=== PATIENT | male | born 1975 | race Asian ===

== ENCOUNTER → 2022-03-01 10:58 | Outpatient (REF) | payer OTHER, SELFPAY | LOC: HO.SL 10:58 | PROVIDERS: PCP Internal Medicine; Visit Provider Nurse Practitioner Family | DX: G47.33 Obstructive sleep apnea (adult) (pediatric) (principal); R06.83 Snoring; R40.0 Somnolence | CPT/HCPCS: 95806 ==

== ENCOUNTER 2023-03-14 11:48 | Outpatient (REF) | payer OTHER, SELFPAY ==
[2023-03-14 16:15] LABS: Alanine Aminotransferase 43 U/L (0-40); Albumin Level 4.5 g/dL (3.5-5.0); Alkaline Phosphatase 52 U/L (39-117); Anion Gap 15 (12-20); Aspartate Amino Transferase 28 U/L (5-37); Bilirubin Direct 0.1 mg/dL (0.0-0.5); Bilirubin Total 0.5 mg/dL (0.0-1.0); Blood Urea Nitrogen 9 mg/dL (9-16); Calcium 9.8 mg/dL (8.4-10.2); Carbon Dioxide 21 mmol/L (22-29); Chloride 106 mmol/L (96-108); Cholesterol 260 mg/dL; Estimated Glomerular Filt Rate > 60; Glucose Random 66 mg/dL (60-115); HDL Cholesterol 53 mg/dL; LDL Cholesterol Calculated 174 mg/dl; Magnesium 2.1 mg/dL (1.6-2.6); Potassium 3.4 mmol/L (3.3-5.1); Sodium 139 mmol/L (135-145); Total Protein 7.4 g/dL (6.5-8.0); Triglycerides 168 mg/dL
[2023-03-14 16:30] LABS: Thyroid Stimulating Hormone 10.44 uIU/mL (0.32-4.0)
[2023-03-14 16:35] LABS: Vitamin B12 202 pg/mL (200-900)
== END 2023-03-14 11:49 | disposition home or self-care (01) ==
LOC: HO.CHCLDS 11:48
PROVIDERS: Visit Provider Student in an Organized Health Care Education/Training Program
DX: E03.9 Hypothyroidism, unspecified (principal); E55.9 Vitamin D deficiency, unspecified
CPT/HCPCS: 80048; 80061; 80076; 82306; 82607; 83735; 84255; 84443

== ENCOUNTER 2023-03-23 11:26 | Outpatient (REF) | payer OTHER, SELFPAY ==
--- NOTE | ~2023-03-23 | US_ITS ---
EXAMINATION: US ABDOMEN COMPLETE CLINICAL INFORMATION: Abnormal liver function tests. COMPARISON: None available. TECHNIQUE: Real-time imaging of the abdominal viscera. Limited visualization due to bowel gas and body habitus. FINDINGS: PANCREAS: Poorly visualized. ABDOMINAL AORTA: Atherosclerosis. Limited visualization. Imaged portion of olc-ie-ebujir abdominal aorta is nonaneurysmal. Poor visualization of pvvoqgik-mr-xwn abdominal aorta. INFERIOR VENA CAVA: Visualized portions are normal. LIVER: Diffuse increase in echogenicity of the liver is characteristic of primary hepatocellular disease, possibly due to hepatic steatosis and further limits visualization. GALLBLADDER: Gallbladder surgically absent. COMMON BILE DUCT: Normal in caliber measuring 0.8 cm in diameter. RIGHT KIDNEY: No hydronephrosis. No renal calculi. Limited visualization. The kidney measures 11.4 cm in maximum dimension. LEFT KIDNEY: No hydronephrosis. No renal calculi. Limited visualization. The kidney measures 10.7 cm in maximum dimension. SPLEEN: Unremarkable. The spleen measures 9.1 cm in maximum dimension. FREE FLUID: None. US/US abdomen complete IMPRESSION: 1. Atherosclerosis. Limited visualization. Imaged portion of gvm-rr-vkxlne abdominal aorta is nonaneurysmal. Poor visualization of yuocooaf-id-sqw abdominal aorta. 2. Diffuse increase in echogenicity of the liver is characteristic of primary hepatocellular disease, possibly due to hepatic steatosis and further limits visualization. 3. Gallbladder surgically absent. 4. Limited visualization due to bowel gas and body habitus. CT scan should be considered for further evaluation.
== END 2023-03-23 11:27 | disposition home or self-care (01) ==
LOC: HO.HMGCX 11:26
PROVIDERS: PCP Internal Medicine; Visit Provider Internal Medicine
DX: R79.89 Other specified abnormal findings of blood chemistry (principal)
CPT/HCPCS: 76700

== ENCOUNTER 2023-07-06 11:31 | Outpatient (REF) | payer OTHER, SELFPAY ==
[2023-07-06 14:44] LABS: MANUAL DIFF FLAG NO
[2023-07-06 14:48] LABS: Basophils Percent Auto 0.5 % (0-2); Eosinophils Absolute Auto 0.1 X10*3/uL (0.0-0.4); Eosinophils Percent Auto 1.7 % (0-4); Hematocrit 41.8 % (42.0-52.0); Hemoglobin 13.9 g/dl (14.0-18.0); Imm Gran Abs Auto 0.02 X10*3/uL (0.00-0.03); Imm Gran Pct Auto 0.3 % (0.0-0.4); Lymphocytes Absolute Auto 2.2 X10*3/uL (1.2-4.9); Lymphocytes Percent Auto 33.1 % (20-40); Mean Corpuscular HGB Conc 33.3 g/dl (31.0-36.0); Mean Corpuscular Volume 87.1 fL (80.0-98.0); Mean Platelet Volume 11.7 fL (9.4-12.4); Monocytes Absolute Auto 0.4 X10*3/uL (0.1-1.2); Monocytes Percent Auto 6.4 % (2-11); Neutrophils Absolute Auto 3.8 x10*3/uL (2.0-8.3); Platelet Count 243 X10*3/uL (160-400); Red Cell Distribution Width 13.5 % (11.0-16.0); White Blood Count 6.6 X10*3/uL (4.8-10.8)
[2023-07-06 15:45] LABS: Alanine Aminotransferase 25 U/L (0-40); Albumin Level 4.6 g/dL (3.5-5.0); Alkaline Phosphatase 52 U/L (39-117); Anion Gap 12 (12-20); Aspartate Amino Transferase 22 U/L (5-37); Bilirubin Direct 0.2 mg/dL (0.0-0.5); Bilirubin Total 0.4 mg/dL (0.0-1.0); Blood Urea Nitrogen 10 mg/dL (9-16); Calcium 9.4 mg/dL (8.4-10.2); Carbon Dioxide 25 mmol/L (22-29); Chloride 104 mmol/L (96-108); Cholesterol 246 mg/dL (<200); Estimated Glomerular Filt Rate > 60; Glucose Random 86 mg/dL (60-115); HDL Cholesterol 46 mg/dL (>40); LDL Cholesterol Calculated 171 mg/dL (<100); Potassium 3.7 mmol/L (3.3-5.1); Sodium 137 mmol/L (135-145); Total Protein 7.5 g/dL (6.5-8.0); Triglycerides 146 mg/dL (<150)
[2023-07-06 15:55] LABS: Thyroid Stimulating Hormone 1.81 uIU/mL (0.32-4.0)
[2023-07-06 16:03] LABS: Vitamin B12 233 pg/mL (200-900)
== END 2023-07-06 11:32 | disposition home or self-care (01) ==
LOC: HO.CHCLDS 11:31
PROVIDERS: Visit Provider Student in an Organized Health Care Education/Training Program
DX: I70.90 Unspecified atherosclerosis (principal); I10 Essential (primary) hypertension; E03.9 Hypothyroidism, unspecified; E53.8 Deficiency of other specified B group vitamins; E55.9 Vitamin D deficiency, unspecified
CPT/HCPCS: 36415; 80048; 80061; 80076; 82306; 82607; 84443; 85025

== ENCOUNTER 2023-07-31 15:24 | Outpatient (REF) | payer OTHER, SELFPAY ==
--- NOTE | ~2023-07-31 | XR_ITS ---
EXAMINATION: XR CHEST CLINICAL INFORMATION: Acute cough COMPARISON: None available. TECHNIQUE: 2 views of the chest were obtained. FINDINGS: No significant abnormality is noted involving the heart, lungs, mediastinum, bony thorax or soft tissues. XR/XR chest 2V IMPRESSION: Unremarkable examination.
== END 2023-07-31 15:25 | disposition home or self-care (01) ==
LOC: HO.XRAY 15:24
PROVIDERS: PCP Internal Medicine; Visit Provider Internal Medicine
DX: R05.1 Acute cough (principal)
CPT/HCPCS: 71046

== ENCOUNTER 2023-09-26 12:38 | Outpatient (REF) | payer OTHER, SELFPAY ==
[2023-09-26 15:25] LABS: Cholesterol 229 mg/dL (<200); HDL Cholesterol 49 mg/dL (>40); LDL Cholesterol Calculated 143 mg/dL (<100); Triglycerides 187 mg/dL (<150)
[2023-09-26 15:41] LABS: TSH reflex Free T4 1.88 uIU/mL (0.32-4.0)
== END 2023-09-26 12:39 | disposition home or self-care (01) ==
LOC: HO.CHCLDS 12:38
PROVIDERS: Visit Provider Internal Medicine
DX: E03.9 Hypothyroidism, unspecified (principal); E78.00 Pure hypercholesterolemia, unspecified
CPT/HCPCS: 36415; 80061; 84443

== ENCOUNTER 2024-08-23 09:04 | Outpatient (REF) | payer OTHER, SELFPAY ==
[2024-08-23 10:24] LABS: Alanine Aminotransferase 33 U/L (0-40); Albumin Level 4.2 g/dL (3.5-5.0); Alkaline Phosphatase 51 U/L (39-117); Anion Gap 11 (12-20); Aspartate Amino Transferase 23 U/L (5-37); Bilirubin Total 0.4 mg/dL (0.0-1.0); Blood Urea Nitrogen 11 mg/dL (9-16); Calcium 8.7 mg/dL (8.4-10.2); Carbon Dioxide 24 mmol/L (22-29); Chloride 111 mmol/L (96-108); Cholesterol 241 mg/dL (<200); Estimated Glomerular Filt Rate > 60; Glucose Random 93 mg/dL (60-115); HDL Cholesterol 49 mg/dL (>40); LDL Cholesterol Calculated 156 mg/dL (<100); Potassium 4.1 mmol/L (3.3-5.1); Sodium 142 mmol/L (135-145); Total Protein 7.2 g/dL (6.5-8.0); Triglycerides 183 mg/dL (<150)
[2024-08-23 10:39] LABS: TSH reflex Free T4 3.42 uIU/mL (0.32-4.0); Vitamin D 25-OH Total 31.4 ng/mL (>30)
[2024-08-23 10:49] LABS: Vitamin B12 1009 pg/mL (200-900)
== END 2024-08-23 09:05 | disposition home or self-care (01) ==
LOC: HO.LAB 09:04
PROVIDERS: PCP Internal Medicine; Visit Provider Internal Medicine
DX: E78.00 Pure hypercholesterolemia, unspecified (principal); E55.9 Vitamin D deficiency, unspecified; E53.8 Deficiency of other specified B group vitamins; E03.9 Hypothyroidism, unspecified
CPT/HCPCS: 36415; 80053; 80061; 82306; 82607; 82746; 84443

== ENCOUNTER 2025-04-18 09:16 | Outpatient (REF) | payer OTHER, SELFPAY ==
--- OUTSIDE RECORDS SUMMARY | 2025-04-18 09:18 | XMS_ITS | Encounter Summary ---
Author Organization [employer] Address [address] [place] [address] 7 [place] [address] Care Team Providers Care Materials Associate Name Role Phone Ranulfo Francisco MD Primary Care Provider [phone] Encounter Details Date Type Department Care Team ([facility] st Contact Info) Description 09/26/2023 Orders Only [facility] CHC MED & PEDS [address] [place], [place] [phone] Ranulfo Francisco MD [address] [place], [place] [phone] Acquired hypothyroidism (Primary Dx) Social History Tobacco Use Types Packs/Day Years Used Date Smoking Tobacco: Never Smokeless Tobacco: Never Sex and Gender Information Value Date Recorded Sex Assigned at Male 07/03/2022 10:22 AM EDT Legal Sex Male 10:22 AM EDT Gender Identity Male 07/03/2022 10:22 AM EDT Sexual Orientation Straight 07/03/2022 10 :22 AM EDT documented as of this encounter Plan of Treatment Scheduled Orders Name Type Priority Associated Diagnoses Orde r Schedule Hepatic Function Panel Lab Routine Acquired hypothyroidism Expected: 10/27/2023 (Approximate), Expires: 09/26/2024 Vitamin D, 25-Hydroxy, Total, Immunoassay Lab Routine Acquired hypothyroidism Expected: 09/26/2023 (Approximate), Expires: 09/26/2024 Vitamin B12/Folate, Serum Panel Lab Routine Acquired hypothyroidism Expected: 09/26/2023, Expires: 09/26/2024 documented as of this encounter Visit Diagnoses Diagnosis Acquired hypothyroidism- Primary Unspecified hypothyroidism documented in this encounter Care Teams Materials Associate Relationship Specialty Start Date End Date Ranulfo Francisco MD [address] [place] [address] PCP - General Internal Medicine 12/05/12 documented as of this encounter
--- OUTSIDE RECORDS SUMMARY | 2025-04-18 09:18 | XMS_ITS | Clinical Summary ---
Author Organization [facility] Address [address] [place] [address] Phone Care Team Providers Care Rod Finisher Name Role Phone Ranulfo Francisco MD Primary Care Pr ovider Allergies No known active allergies Social History Tobacco Use Types Packs/Day Years Used Date Smoking Tobacco: Never Assessed Education Answer Date Recorded Are you interested in more education? Not on bobby e 12/28/2022 Are you concerned about learning? Not on file 12/28/2022 No 12/28/2022 No 12/28/2022 Digital Access Answer Date Recorded No 01/29/2023 No 01/29/2023 No 01/29/2023 Reliable internet access at home? Not on file 01/29/2023 Device with a working camera? Not on file Sex and Gender Information Value Date Recorded Sex Assigned at Not on file Legal Sex Male 7:13 PM EST Gender Identity Not on file Sexual Orientation Not on file Last Filed Vital Signs Vital Sign Reading Time Taken Comments Blood Pressure 138/82 01/28/2019 10:40 AM EDT Pulse - - Temperature - - Respiratory Rate - - Oxygen Saturation 99% 01/28/2019 9:00 AM EDT Inhaled Oxygen Concentration - - Weight - - Height - - Body Mass Index - - Plan of Treatment Not on file Medical Devices Not on file Insurance [employer] Member Subscriber Plan / Payer (Ef fective 2018-Present) Name:Austen Benitez Relation to Subscriber:Spouse Name:BLAYNE DUEÑAS Date of :1900 (Home) Address: [address] [place] [address] Payer ID:Not on file Type:HMO Address: [place] [id number] [place], [place] [address] [place], [place] [address] [place], [place] [address] [place] [address] [place] [address] [place] [place] Address: [address] [address] Care Teams Rod Finisher Relationship Specialty Start Date End Date Ranulfo Francisco MD [address] [place] [address] PCP - General Internal Medicine 01/28/19 Additional Source Comments The information contained in this document represents components of the legal health record. It is not the complete legal health record.[facility]
[2025-04-18 11:24] LABS: Hemoglobin A1C 129.9960 umol/L; Total Hemoglobin (HGBA1C) 3771.6150 umol/L
[2025-04-18 11:37] LABS: Alanine Aminotransferase 41 U/L (0-40); Albumin Level 4.7 g/dL (3.5-5.0); Alkaline Phosphatase 60 U/L (39-117); Anion Gap 15 (12-20); Aspartate Amino Transferase 33 U/L (5-37); Blood Urea Nitrogen 12 mg/dL (9-16); Calcium 9.1 mg/dL (8.4-10.2); Carbon Dioxide 23 mmol/L (22-29); Chloride 108 mmol/L (96-108); Cholesterol 207 mg/dL (<200); Estimated Glomerular Filt Rate > 60; HDL Cholesterol 50 mg/dL (>40); Potassium 4.1 mmol/L (3.3-5.1); Sodium 142 mmol/L (135-145); Total Protein 7.3 g/dL (6.5-8.0); Triglycerides 103 mg/dL (<150)
== END 2025-04-18 09:17 | disposition home or self-care (01) ==
LOC: HO.LAB 09:16
PROVIDERS: PCP Student in an Organized Health Care Education/Training Program; Visit Provider Student in an Organized Health Care Education/Training Program
DX: I10 Essential (primary) hypertension (principal); E03.9 Hypothyroidism, unspecified; E78.00 Pure hypercholesterolemia, unspecified; E55.9 Vitamin D deficiency, unspecified
CPT/HCPCS: 36415; 80048; 80061; 80076; 82306; 83036; 84443

== ENCOUNTER 2025-06-10 09:01 | Outpatient (REF) | payer OTHER, SELFPAY ==
[2025-06-10 15:07] LABS: Alanine Aminotransferase 39 U/L (0-40); Albumin Level 4.3 g/dL (3.5-5.0); Alkaline Phosphatase 51 U/L (39-117); Aspartate Amino Transferase 29 U/L (5-37); Cholesterol 229 mg/dL (<200); HDL Cholesterol 51 mg/dL (>40); Total Protein 6.8 g/dL (6.5-8.0); Triglycerides 142 mg/dL (<150)
== END 2025-06-10 09:02 | disposition home or self-care (01) ==
LOC: HO.CHCLDS 09:01
PROVIDERS: Visit Provider Internal Medicine
DX: E78.00 Pure hypercholesterolemia, unspecified (principal); R74.01 Elevation of levels of liver transaminase levels; R07.89 Other chest pain
CPT/HCPCS: 36415; 80061; 80076; 85652; 86140

== ENCOUNTER 2025-09-02 07:12 | Outpatient (REF) | payer OTHER, SELFPAY ==
--- OUTSIDE RECORDS SUMMARY | 2025-09-02 07:14 | XMS_ITS | Encounter Summary ---
Author Organization [employer] Address [address] [place] [address] 7 [place] [address] Care Team Providers Care Match Up Worker Name Role Phone Ranulfo Francisco MD Primary Care Provider [phone] Encounter Details Date Type Department Care Team ([facility] st Contact Info) Description 09/26/2023 Orders Only [facility] CHC MED & PEDS [address] [place], [place] [phone] Ranulfo Francisco MD [address] [place], [place] [phone] Acquired hypothyroidism (Primary Dx) Social History Tobacco [...] hypothyroidism documented in this encounter Care Teams Match Up Worker Relationship Specialty Start Date End Date Ranulfo Francisco MD [address] [place] [id number] PCP - General Internal Medicine 12/05/12 documented as of this encounter
--- OUTSIDE RECORDS SUMMARY | 2025-09-02 07:14 | XMS_ITS | Encounter Summary ---
Author Organization [employer] Address [address] [place] [address] 7 [place] [address] Care Team Providers Care Belt Splicer Name Role Phone Ranulfo Francisco MD Primary Care Provider [phone] Encounter Details Date Type Department Care Team ([facility] st Contact Info) Description 05/21/2023 Orders Only [facility] CHC MED & PEDS [address] [place] [address] Danay Dixon LPN Social History Tobacco Use Types Packs/Day Years Used Date Smoking Tobacco: Never Assessed Sex and Gender Information Value Date Recorded Sex Assigned at Male 07/03/2022 10:22 AM EDT Legal Sex Male 10:22 AM EDT Gender Identity Male 07/03/2022 10:22 AM EDT Sexual Orientation Straight 07/03/2022 10 :22 AM EDT documented as of this encounter Plan of Treatment Not on file documented as of this encounter Visit Diagnoses Not on filedocumented in this encounter Care Teams Belt Splicer Relationship Specialty Start Date End Date Ranulfo Francisco MD [address] [place] [address] PCP - General Internal Medicine 12/05/12 documented as of this encounter
--- OUTSIDE RECORDS SUMMARY | 2025-09-02 07:14 | XMS_ITS | Encounter Summary ---
Author Organization [employer] Address [address] [place] [address] [address] [place] [address] Care Team Providers Care Hydraulic Elevator Constructor Name Role Phone Ranulfo Francisco MD Primary Care Provider [phone] Encounter Details Date Type Department Care Team (Latest Contact Info) Description 09/01/2025 Orders Only [facility] CHC MED & PEDS [address] [place], [place] [phone] Ranulfo Francisco MD [address] [place], [place] [phone] Hypercholesterolemia (Primary Dx); Transaminitis; Vitamin D deficiency; Vitamin B12 deficiency; Acquired hypothyroidism; Other fatigue Social History Tobacco Use Types Packs/Day Years [...] Type Priority Associated Diagnoses Orde r Schedule Basic Metabolic Panel Lab Routine Other fatigue Expected: 09/01/2025 (Approximate), Expires: 09/01/2026 Lipid Panel, Standard Lab Routine Other fatigue Expected: 09/01/2025 (Approximate), Expires: 09/01/2026 Hepatic Function Panel Lab Routine Acquired hypothyroidism Expected: 09/01/2025 (Approximate), Expires: 09/01/2026 TSH with Reflex to Free T4 Lab Routine Acquired hypothyroidism Expected: 09/01/2025 (Approximate), Expires: 09/01/2026 Hemoglobin A1c Lab Routine Other fatigue Expected: 09/01/2025 (Approximate), Expires: 09/01/2026 Testosterone, Free (Dialysis) And Total, MS Lab Routine Other fatigue Expected: 09/01/2025 (Approximate), Expires: 09/01/2026 Vitamin B12/Folate, Serum Panel Lab Routine Vitamin B12 deficiency Expected: 09/01/2025, Expires: 09/01/2026 Cotisol, A.M. Lab Routine Other fatigue Expected: 09/01/2025 (Approximate), Expires: 09/01/2026 Vitamin D, 25-Hydroxy, Total, Immunoassay Lab Routine Vitamin D deficiency Expected: 09/01/2025 (Approximate), Expires: 09/01/2026 documented as of this encounter Visit Diagnoses Diagnosis Hypercholesterolemia- Primary Pure hypercholesterolemia Transaminitis Nonspecific elevation of levels of transaminase or lactic acid dehydrogenase (LDH) Vitamin D deficiency Vitamin B12 deficiency Other B-complex deficiencies Acquired hypothyroidism Unspecified hypothyroidism Other fatigue documented in this encounter Care Teams Hydraulic Elevator Constructor Relationship Specialty Start Date End Date Ranulfo Francisco MD [address] [place] [address] PCP - General Internal Medicine 12/05/12 documented as of this encounter
--- OUTSIDE RECORDS SUMMARY | 2025-09-02 07:14 | XMS_ITS | Encounter Summary ---
Author Organization [employer] Address [address] [place] [address] 7 [place] [address] Care Team Providers Care Restrictive Preparation Operator Name Role Phone Ranulfo Francisco MD Primary Care Provider [phone] Encounter Details Date Type Department Care Team (Late st Contact Info) Description 08/06/2025 Orders Only [facility] CHC MED & PEDS [address] [place] [address] Ranulfo Francisco MD [address] [place] [address] Social History Tobacco Use Types Packs/Day Years [...] on filedocumented in this encounter Care Teams Restrictive Preparation Operator Relationship Specialty Start Date End Date Ranulfo Francisco MD [address] [place] [address] PCP - General Internal Medicine 12/05/12 documented as of this encounter
--- OUTSIDE RECORDS SUMMARY | 2025-09-02 07:14 | XMS_ITS | Encounter Summary ---
Author Organization [employer] Address [address] [place] [address] 7 [place] [address] Care Team Providers Care Lamination Machine Operator Name Role Phone Ranulfo Francisco MD Primary Care Provider [phone] Encounter Details Date Type Department Care Team ([facility] st Contact Info) Description 06/11/2025 Orders Only [facility] CHC MED & PEDS [address] [place] [address] Provider, MD Anat Social History Tobacco Use Types Packs/Day Years [...] on filedocumented in this encounter Care Teams Lamination Machine Operator Relationship Specialty Start Date End Date Ranulfo Francisco MD [address] [place] [address] PCP - General Internal Medicine 12/05/12 documented as of this encounter
--- OUTSIDE RECORDS SUMMARY | 2025-09-02 07:14 | XMS_ITS | Encounter Summary ---
Author Organization [employer] Address [address] [place] [address] 7t [place] [address] Care Team Providers Care Show Girl Name Role Phone Ranulfo Francisco MD Primary Care Provider [phone] Encounter Details Date Type Department Care Team (Late st Contact Info) Description 01/10/2024 Orders Only [facility] CHC MED & PEDS [address] [place], [place] [phone] Provider, MD Anat Social History Tobacco Use [...] on file documented as of this encounter Procedures Procedure Name Priority Date/Time Associated Diagnosis Comments POLYSOMNOGRAM Routine 01/06/2024 9:00 AM EDT documented in this encounter Results * Polysomnography (01/06/2024 9:00 AM EDT) us Historical Provider [facility] ORDERABLES F inal Result documented in this encounter Visit Diagnoses Not on filedocumented in this encounter Care Teams Show Girl Relationship Specialty Start Date End Date Ranulfo Francisco MD [address] [place] [address] PCP - General Internal Medicine 12/05/12 documented as of this encounter
--- OUTSIDE RECORDS SUMMARY | 2025-09-02 07:14 | XMS_ITS | Encounter Summary ---
Author Organization [facility] Address [address] [facility] [address] [place] [address] Phone Care Team Providers Care Applications Support Specialist Name Role Phone Unknown, Unknown Primary Care Provider Ranulfo Finnegan MD Primary Care Pr ovider Encounter Details Date Type Department Care Team (Latest Contact Info) Description 01/22/2019 Transcribe Orders [facility] [address] [place] [address] 3rd Floor, [address] [place] [address] Ranulfo Francisco MD [address] [place] [address] Essential hypertension (Primary Dx); Dyspnea, unspecified type Social History Tobacco Use Types Packs/Day Years Used Date Smoking Tobacco: Never Assessed Sex and Gender Information Value Date Recorded Sex Assigned at Not on file Legal Sex Male 7:13 PM EST Gender Identity Not on file Sexual Orientation Not on file documented as of this encounter Plan of Treatment Not on file documented as of this encounter Results * NC Myocardial Perfusion Exercise Multiple (01/28/2019 10:46 AM EDT) Nuc Stress EF 62 % LV Systolic Volume 36 mL LV Diastolic Volume 78 mL EF 54 % LV Systolic Volume Index 28 mL/m2 LV Diastolic Volume Index 75 mL/m2 Anatomical Region Laterality Modality Heart, Vascular Ultrasound Narrative 01/30/2019 1:53 PM EDT Normal study. There is no evidence of myocardial infarction or ischemia. Normal LV size and function with no regional wall motion abnormalities. Very low likelihood of hemodynamically significant coronary artery disease. Low risk study for myocardial events or cardiac in the next two years. Nuclear Study Quality TYPE OF STUDY: Myocardial Perfusion Imaging after exercise utilizing a standard Jd protocol with gated SPECT. PROTOCOL USED: One day stress protocol in the supine and prone position. Images were obtained in gated tomographic technique. Images were processed in SPECT format, reconstructed tomographically and compared [id number] in short axis, horizontal long axis and vertical long axis. DOSE: Technetium 99m Sestamibi 7.5 mCi injected intravenously at rest on 01/28/2019 with post injection scan time of 60 minutes. Technetium 99m Sestamibi 22.5 mCi injected intravenously during stress on 01/28/2019 with post injection scan time of 20 minutes. Overall image quality is good. There are no artifacts present. Study was gated successfully. Response to Stress Pt exercised for 10:39 min on a JD protocol achieving 13.4 METS. Test terminated due to fatigue. Baseline resting HR was 75. Max heart rate achieved was 171 (96% MPHR). 1. EKG - Baseline EKG showed normal sinus rhythm, nonspecific ST-T wave abnormalities which were more pronounced when the leads were in the stress testing position. During exercise, there were nonspecific ST-T wave changes not meeting criteria for ischemia. EKGs returned to baseline in recovery. 2. SYMPTOMS -no chest pain 3. EXERCISE PHYSIOLOGY -normal functional capacity for age. Normal blood pressure response to exercise. 4. ARRHYTHMIAS -none Conclusion - No EKG evidence of ischemia. Nuclear images pending and will be reported separately. See attached stress report for full details. Carlene Martinez MICROELECTRONICS ENGINEER . Perfusion Comments There is no evidence of transient ischemic dilation (TID). The TID ratio was 0.7. Perfusion Conclusion The lung to heart ratio is 0.28. Stress Function Comments Post-stress ejection fraction was 62%. Stress end diastolic index: 75 mL/m2. Stress end systolic index: 28 mL/m2. Rest Function Comments Resting ejection fraction was 54%. Rest end diastolic index: 78 mL. Rest end systolic index: 36 mL. Perfusion Scoring Stress Summed Score: 0 Percent Normal: 0.00% The left ventricular perfusion is normal. Perfusion Scoring Resting Summed Score: 0 Percent Normal: 0.00% The left ventricular perfusion is normal. us Provider Not In System PhD CV NM CARDIAC Final Result documented in this encounter Visit Diagnoses Diagnosis Essential hypertension- Primary Unspecified essential hypertension Dyspnea, unspecified type Essential hypertension Unspecified essential hypertension Dyspnea, unspecified type documented in this encounter Care Teams Applications Support Specialist Relationship Specialty Start Date End Date Unknown, Unknown, MD PCP - General 01/22/19 01/27/19 Ranulfo Francisco MD [address] [place] [address] PCP - General Internal Medicine 01/28/19 documented as of this encounter Additional Source Comments The information contained in this document represents components of the legal health record. It is not the complete legal health record.[facility]
--- OUTSIDE RECORDS SUMMARY | 2025-09-02 07:14 | XMS_ITS | Clinical Summary ---
Author Organization [employer] Address [address] [facility] 7t [place] [address] Care Team Providers Care Help Desk Technician Name Role Phone Ranulfo Francisco MD Primary Care Provider [phone] Allergies No known active allergies Medications Azelastine HCl 137 MCG/SPRAY solution INHALE TWO SPRAYS IN EACH NOSTRIL TWICE DAILY 04/26/20 23 Active rosuvastatin (Crestor) 10 MG tabletIndications :Hypercholesterol emia Take 1 tablet (10 mg) by mouth in the morning. 30 tablet 11 08/10/20 23 Active Mometasone Furoate (Asmanex HFA) 200 MCG/ACT aerosol Use by inhaltion BID 13 g 3 08/14/20 23 Active losartan (Cozaar) 50 MG tabletIndications :Essential hypertension TAKE ONE TABLET EVERY MORNING 90 tablet 08/14/20 24 Active Azelastine HCl 137 MCG/SPRAY solutionIndicatio ns:Nasal congestion INHALE TWO SPRAYS IN EACH NOSTRIL TWICE DAILY 30 mL 3 09/04/19 25 Active azithromycin (Zithromax) 250 MG tabletIndications :Bronchitis 500 mg on day 1, 250 mg day 2 through 5 6 tablet 11/05/19 25 Active predniSONE (Deltasone) 20 MG tabletIndications :Bronchitis 40 mg once a day for 5 days 10 tablet 11/08/19 25 Active azithromycin (Zithromax) 250 MG tabletIndications :COPD exacerbation (CMS/HCC) (HCC) 500 mg on day 1, 250 mg day 2 to 5 6 tablet 07/13/20 25 Active esomeprazole (NexIUM) [address] capsuleIndication s:Gastroesophagea l reflux disease without esophagitis Take 1 capsule (20 mg) by mouth before breakfast. Do not open capsule. 30 capsule 11 07/13/20 25 026 Active levothyroxine (Synthroid, Levoxyl) 175 MCG tabletIndications :Other specified hypothyroidism TAKE ONE TABLET DAILY BEFORE BREAKFAST 90 tablet 3 5 4:25 PM EST 07/22/20 25 Active hydroCHLOROthiazi de 12.5 MG tabletIndications :Primary hypertension TAKE ONE TABLET EVERY DAY 90 tablet 3 5 3:45 PM EST 08/07/20 25 Active hydroCHLOROthiazi de 12.5 MG tabletIndications :Primary hypertension Take 1 tablet (12.5 mg) by mouth Once per day. 90 tablet 3 09/04/19 25 025 Discontinued amoxicillin-clavu lanate (Augmentin) 875-125 MG tablet Take 1 tablet by mouth 2 times daily for 10 days. 20 tablet 07/13/20 25 025 Hospital, Clinic, or Other Facility Administered Medication Ordered Dose Route Frequency Start Date End Date Status cyanocobalamin (Vitamin B-12) injection 1,000 mcgIndications:Vitamin B12 deficiency 1000 mcg IM Every 30 days 01/23/2023 Active Active Problems Problem Noted Date Diagnosed Date Vitamin D deficiency 08/22/2024 Vitamin B12 deficiency 08/22/2024 Asthma 08/10/2023 08/10/2023 Acquired hypothyroidism 08/10/2023 Hypercholesterolemia 02/08/2015 08/10/2023 Hypertensive disorder 02/08/2015 08/10/2023 Encounters Date Type Department Care Team Description 09/01/2025 Orders Only [facility] [address] [facility] [place] [address] Ranulfo Francisco MD Hypercholesterolemia (Primary Dx); Transaminitis; Vitamin D deficiency; Vitamin B12 deficiency; Acquired hypothyroidism; Other fatigue 09/01/2025 Orders Only [facility] MED [facility] [address] [facility] [place] [address] Blayne Stout MD 08/07/2025 Refill [facility] MED & PEDS [address] [place] [address] Ranulfo Francisco MD Primary hypertension 08/06/2025 Orders Only [facility] MED [facility] [place] [address] Ranulfo Francisco MD 07/22/2025 Refill [facility] MED & PEDS [address] [place] [address] Ranulfo Francisco MD Other specified hypothyroidism 07/13/2025 Orders Only [facility] MED & PEDS [address] [place] [address] Ranulfo Francisco MD COPD exacerbation (CMS/HCC) (HCC) (Primary Dx); Gastroesophageal reflux disease without esophagitis 06/11/2025 Orders Only [facility] MED & PEDS [address] [place] [address] ProviderAnat MD 06/10/2025 2:00 PM EDT Office Visit [facility] MED & PEDS [address] [place] [address] Ranulfo Francisco MD Other chest pain (Primary Dx) 06/10/2025 Travel from Last 3 Months Immunizations Immunization Administration Dates Next Due Influenza injectable quadrivalent preservative f ree 06/25/2023 Social History Tobacco Use Types Packs/Day Years Used Date Smoking Tobacco: Never Smokeless Tobacco: Never Tobacco Cessation:Counseling Given: No Sex and Gender Information Value Date Recorded Sex Assigned at Male 07/03/2022 10:22 AM EDT Legal Sex Male 10:22 AM EDT Gender Identity Male 07/03/2022 10:22 AM EDT Sexual Orientation Straight 07/03/2022 10 :22 AM EDT Last Filed Vital Signs Vital Sign Reading Time Taken Comments Blood Pressure 125/79 06/10/2025 8:44 AM EDT Pulse 72 06/10/2025 8:44 AM EDT Temperature 36.2 C (97.1 F) 08/10/2023 1:30 PM EST Respiratory Rate 20 06/10/2025 8:44 AM EDT Oxygen Saturation 97% 06/10/2025 8:44 AM EDT Inhaled Oxygen Concentration - - Weight 80.3 kg (177 lb) 08/10/2023 1:30 PM EST Height 172.7 cm (5' 8 ) 06/10/2025 8:44 AM EDT Body Mass Index 26.91 08/10/2023 1:30 PM EST Plan of Treatment Health Maintenance Due Date Last Done Comments CT Colonography 1975 Colonoscopy 1975 Colorectal Cancer Screening 1975 Depression Screening 1975 FIT DNA/Cologuard 1975 FIT 1975 FOBT 1975 HIV Screening 1975 SDOH Screening 1975 Sigmoidoscopy 1975 Disability Screening 1975 Alcohol/Substance Use Screening 1987 Family Planning (PISQ) 12/16/1990 Hepatitis C Screening 12/16/1993 Hepatitis B Vaccines (1 of 3 - 19+ 3-dose series) 12/16/1994 Pneumococcal Vaccine: Pediatrics (0 to 5 Years) and At-Risk Patients (6 to 49) Years (1 of 2 - PCV) 12/16/1994 COVID-19 Vaccine (4 - 2024- season) 2025 06/04/2021, 09/17/2020, 08/25/2020 Influenza Vaccine (#1) 2025 , 06/25/2023, 07/17/2022, Additional history exists Zoster Vaccines (1 of 2) 12/16/2025 Tobacco Screening 06/10/2026 06/10/2025 DTaP/Tdap/Td Vaccines (2 - Td or Tdap) 06/01/2027 06/01/2017 Lipid Panel 06/10/2030 06/10/2025, 04/03, 08/23/2024, Additional history exists RSV Patients and Patients Aged 60 years or older (1 - 1-dose 75+ series) 12/16/2050 HIB Vaccines Aged Out No longer eligi ble based on patient's age to complete this topic HPV Vaccines Aged Out No longer eligi ble based on patient's age to complete this topic Hepatitis A Vaccines Aged Out No long er eligible based on patient's age to complete this topic IPV Vaccines Aged Out No longer eligi ble based on patient's age to complete this topic Meningococcal B Vaccine Aged Out No l onger eligible based on patient's age to complete this topic Meningococcal Vaccine Aged Out No wong alfonso eligible based on patient's age to complete this topic RSV under 20 months Aged Out No longe r eligible based on patient's age to complete this topic Rotavirus Vaccines Aged Out No longer eligible based on patient's age to complete this topic Procedures Procedure Name Priority Date/Time Associated Diagnosis Comments ECG 12-LEAD Routine 06/10/2025 10:13 AM EDT Other chest pain SED RATE BY MODIFIED ALDOERGREN Routine 06/10/2025 9:02 AM EDT Other chest pain C-REACTIVE PROTEIN Routine 06/10/2025 9: 02 AM EDT Other chest pain LIPID PANEL, STANDARD Routine 06/10/2025 9:02 AM EDT Hypercholesterolemi a HEPATIC FUNCTION PANEL Routine 06/10/2025 9:02 AM EDT Transaminitis from Last 3 Months Results * ECG 12 lead (06/10/2025 10:13 AM EDT) Narrative Ranulfo Francisco MD - 06/10/2025 10:13 AM EDT HR: 59 bpm. NSR. [place]: 9 Degrees. No Sign of LAE/PRICILLA. No sigh of Hypertrophy. No ST elevation /ST depression. Normal EKG. us Ranulfo Francisco MD ECG ORDERABLES Final Resul t * Sed Rate by [place] Romo (06/10/2025 9:02 AM EDT) Erythrocyte Sedimentation Rate 6 0 - 15 MM/HR [facility] Comment:Patients with polycy themia and many hemoglobin abnormalitiesmay have depressed sed rates whereas patients with anemiamay have elevated sed rates. Blood Venous blood specimen / Unknown 06/10/2025 9:02 AM EDT 06/10/2025 2:18 PM EDT us Ranulfo Francisco MD LAB BLOOD ORDERABLES Final Result [facility] [address] [place] [phone] * C-reactive Protein (06/10/2025 9:02 AM EDT) C Reactive Protein 0.20 < or = 0.50 mg/dL [facility] Blood Venous blood specimen / Unknown 06/10/2025 9:02 AM EDT 06/10/2025 2:18 PM EDT Ranulfo Francisco MD LAB BLOOD ORDERABLES Final Result [facility] [address] [place] [address] [phone] * Hepatic Function Panel (06/10/2025 9:02 AM EDT) [facility] Bilirubin, Total 0.3 0.0 - 1.0 mg/dL [facility] Bilirubin, Direct 0.2 0.0 - 0.5 mg/dL [facility] Aspartate Amino Transferase 29 5 - 37 U/L [facility] Alanine Aminotransferase 39 0 - 40 U/L [facility] Total Protein 6.8 6.5 - 8.0 g/dL [facility] Albumin Level 4.3 3.5 - 5.0 g/dL [facility] Alkaline Phosphatase 51 39 - 117 U/L [facility] Blood Venous blood specimen / Unknown 06/10/2025 9:02 AM EDT 06/10/2025 2:18 PM EDT us Ranulfo Francisco MD LAB BLOOD ORDERABLES Final Result Performing Organization Address City/[facility]/ZIP Co de Phone Number [facility] [address] [place] [address] [phone] * (ABNORMAL) Lipid Panel, Standard (06/10/2025 9:02 AM EDT) Triglycerides 142 <150 mg/dL [facility] Comment:Desirable Triglyceri de: less than 150 mg/dLBorderline High Triglyceride 150-199 mg/dLHigh Triglyceride: 200-499 mg/dLVery High Triglyceride: greater than or equal to 5OO mg/dL Cholesterol 229(H) <200 mg/dL [facility] Comment:Desirable Cholestero l: less than 200 mg/dLBorderline High Cholesterol: 200-239 mg/dLHigh Cholesterol: greater than 239 mg/dL LDL Cholesterol Calculated 150(H) <100 mg/dL [facility] Comment:Desirable LDL: less than 100 mg/dLNear Optimal/Above Optimal LDL: 110- 129 mg/dLBorderline High LDL: 130-159 mg/dLHigh LDL: 160-189 mg/dLVery High LDL: greater than or equal to 190 mg/dL HDL Cholesterol 51 >40 mg/dL [facility] Comment:Desirable HDL: great er than 40 mg/dL Note: This HDL assay may give artificially low results in patients with liver disease. Blood Venous blood specimen / Unknown 06/10/2025 9:02 AM EDT 06/10/2025 2:18 PM EDT Ranulfo Francisco MD LAB BLOOD ORDERABLES Final Result [facility] [address] [place] [phone] from Last 3 Months Insurance [facility] Care Teams Help Desk Technician Relationship Specialty Start Date End Date Ranulfo Francisco MD [address] [place] [phone] PCP - General Internal Medicine 12/05/12
--- OUTSIDE RECORDS SUMMARY | 2025-09-02 07:14 | XMS_ITS | Encounter Summary ---
Author Organization [employer] Address [address] [place] [address] [place] [address] Care Team Providers Care Buttermaker Helper Name Role Phone Ranulfo Francisco MD Primary Care Provider [phone] Reason for Referral * Imaging (Routine) - Closed Specialty Diagnoses / Procedures Referred By Juan Pablo caicedo Referred To Contact Radiology Diagnoses Atherosclerosis Hepatic steatosis Procedures CT Abdomen Pelvis w/ and w/o Contrast Ranulfo Francisco MD [address] [place] [address] Phone: tel: fax: [facility] [address] [place], [place] Phone: tel: fax: Referral ID Status Reason Start Date Expiration Date Visits Re quested Visits Authorized [id number] Closed 03/28/2023 03/27/2024 1 1 Encounter Details Date Type Department Care Team (Late st Contact Info) Description 03/15/2023 Orders Only [facility] CH[facility] MED & PEDS [address] [place], [place] [phone] Ranulfo Francisco MD [address] [place] [address] Other specified hypothyroidism (Primary Dx); Atherosclerosis; Hepatic steatosis Social History Tobacco Use Types Packs/Day Years [...] Type Priority Associated Diagnoses Orde r Schedule CT Abdomen Pelvis w/ and w/o Contrast Imaging Routine Atherosclerosis Hepatic steatosis Expected: 03/28/2023 (Approximate), Expires: 03/28/2024 documented as of this encounter Visit Diagnoses Diagnosis Other specified hypothyroidism- Primary Atherosclerosis Hepatic steatosis Other chronic nonalcoholic liver disease documented in this encounter Care Teams Buttermaker Helper Relationship Specialty Start Date End Date Ranulfo Francisco MD [address] [place] [phone] PCP - General Internal Medicine 12/05/12 documented as of this encounter
--- OUTSIDE RECORDS SUMMARY | 2025-09-02 07:14 | XMS_ITS | Encounter Summary ---
Author Organization [employer] Address [address] [place] [address] 7 [place] [address] Care Team Providers Care Band Instrument Repairer Name Role Phone Ranulfo Francisco MD Primary Care Provider [phone] Encounter Details Date Type Department Care Team (Late st Contact Info) Description 08/09/2022 Orders Only [facility] MEDICINE [address] [place], [place] [phone] Ranulfo Francisco MD [address] [place], [place] [phone] Essential hypertension (Primary Dx) Social History Tobacco Use Types [...] as of this encounter Visit Diagnoses Diagnosis Essential hypertension- Primary Unspecified essential hypertension documented in this encounter Care Teams Band Instrument Repairer Relationship Specialty Start Date End Date Ranulfo Francisco MD [address] [place] [address] PCP - General Internal Medicine 12/05/12 documented as of this encounter
--- OUTSIDE RECORDS SUMMARY | 2025-09-02 07:14 | XMS_ITS | Encounter Summary ---
Author Organization [employer] Address [address] [place] [address] 7 [place] [address] Care Team Providers Care Flue Dust Laborer Name Role Phone Ranulfo Francisco MD Primary Care Provider [phone] Encounter Details Date Type Department Care Team (Late st Contact Info) Description 09/01/2025 Orders Only [facility] MED & PEDS [address] [place] [address] Marisa Stout MD [address] [place] [address] Social History Tobacco Use Types Packs/Day Years [...] on filedocumented in this encounter Care Teams Flue Dust Laborer Relationship Specialty Start Date End Date Ranulfo Francisco MD [address] [place] [address] PCP - General Internal Medicine 12/05/12 documented as of this encounter
--- OUTSIDE RECORDS SUMMARY | 2025-09-02 07:14 | XMS_ITS | Encounter Summary ---
Author Organization [employer] Address [address] [place] [address] 7t [place] [address] Care Team Providers Care Human Resource Intern Name Role Phone Ranulfo Francisco MD Primary Care Provider [phone] Encounter Details Date Type Department Care Team ([facility] st Contact Info) Description 06/20/2023 Orders Only [facility] CH[facility] MED & PEDS [address] [place] [address] Ranulfo Francisco MD [address] [place] [address] Encounter for screening colonoscopy (Primary Dx) Social History Tobacco Use Types [...] as of this encounter Visit Diagnoses Diagnosis Encounter for screening colonoscopy- Primary documented in this encounter Care Teams Human Resource Intern Relationship Specialty Start Date End Date Ranulfo Francisco MD [address] [place] [address] PCP - General Internal Medicine 12/05/12 documented as of this encounter
--- OUTSIDE RECORDS SUMMARY | 2025-09-02 07:14 | XMS_ITS | Clinical Summary ---
Author Organization [facility] Address [address] [place] [address] Phone Care Team Providers Care Help Desk Engineer Name Role Phone Ranulfo Francisco MD Primary [...] Name:BLAYNE DUEÑAS Date of :1900 (Home) Address: [address] [place] [address] Payer ID:Not on file Type:HMO Address: [place] [id number] [place], [place] [address] [place], [place] [address] [place], [place] [address] [place] [place] [address] [place] [address] [facility] Address: [address] [address] Care Teams Help Desk Engineer Relationship Specialty Start Date End Date Ranulfo Francisco MD [address] [place] [address] PCP - General Internal Medicine 01/28/19 Additional Source Comments The information contained in this document represents components of the legal health record. It is not the complete legal health record.[facility]
--- OUTSIDE RECORDS SUMMARY | 2025-09-02 07:14 | XMS_ITS | Encounter Summary ---
Author Organization [employer] Address [address] [place] [address] 7 [place] [address] Care Team Providers Care Continuous Process Machine Operator Name Role Phone Ranulfo Francisco MD Primary Care Provider [phone] Encounter Details Date Type Department Care Team ([facility] st Contact Info) Description 07/23/2024 Orders Only [facility] MED & PEDS [address] [place] [address] Ranulfo Francisco MD [address] [place] [address] Other specified hypothyroidism Social History Tobacco Use Types Packs/Day Years [...] this encounter Visit Diagnoses Diagnosis Other specified hypothyroidism documented in this encounter Care Teams Continuous Process Machine Operator Relationship Specialty Start Date End Date Ranulfo Francisco MD [address] [place] [address] PCP - General Internal Medicine 12/05/12 documented as of this encounter
--- OUTSIDE RECORDS SUMMARY | 2025-09-02 07:14 | XMS_ITS | Encounter Summary ---
Author Organization [employer] Address [address] [place] [address] 7 [place] [address] Care Team Providers Care Web Developer Programmer Name Role Phone Ranulfo Francisco MD Primary Care Provider [phone] Encounter Details Date Type Department Care Team (Late st Contact Info) Description 11/04/2024 Orders Only [facility] MED[facility]INE [address] [place], [place] [phone] Ranulfo Francisco MD [address] [place] [address] Bronchitis (Primary Dx) Social History Tobacco Use Types [...] as of this encounter Visit Diagnoses Diagnosis Bronchitis- Primary Bronchitis, not specified as acute or chronic documented in this encounter Care Teams Web Developer Programmer Relationship Specialty Start Date End Date Ranulfo Francisco MD [address] [place] [address] PCP - General Internal Medicine 12/05/12 documented as of this encounter
--- OUTSIDE RECORDS SUMMARY | 2025-09-02 07:14 | XMS_ITS | Encounter Summary ---
Author Organization [employer] Address [address] [place] [address] 7 [place] [address] Care Team Providers Care Tool Salvage Worker Name Role Phone Ranulfo Francisco MD Primary Care Provider [phone] Encounter Details Date Type Department Care Team ([facility] st Contact Info) Description 07/13/2025 Orders Only [facility] CHC MED & PEDS [address] [place] [address] Ranulfo Francisco MD [address] [place] [address] COPD exacerbation (CMS/HCC) (HCC) (Primary Dx); Gastroesophageal reflux disease without esophagitis Social History Tobacco Use Types Packs/Day Years [...] as of this encounter Visit Diagnoses Diagnosis COPD exacerbation (CMS/HCC) (HCC)- Primary Obstructive chronic bronchitis with exacerbation Gastroesophageal reflux disease without esophagitis Esophageal reflux documented in this encounter Care Teams Tool Salvage Worker Relationship Specialty Start Date End Date Ranulfo Francisco MD [address] [place] [address] PCP - General Internal Medicine 12/05/12 documented as of this encounter
--- OUTSIDE RECORDS SUMMARY | 2025-09-02 07:14 | XMS_ITS | Encounter Summary ---
Author Organization [employer] Address [address] [place] [address] 7 [place] [address] Care Team Providers Care Logistical Engineer Name Role Phone Ranulfo Francisco MD Primary Care Provider [phone] Encounter Details Date Type Department Care Team (Late st Contact Info) Description 02/05/2023 Orders Only [facility] CHC MED & PEDS [address] [place], [place] [phone] Ranulfo Francisco MD [address] [place] [address] History of candidiasis (Primary Dx) Social History Tobacco Use Types Packs/Day Years Used Date Smoking Tobacco: Never Assessed Sex and Gender Information Value Date Recorded Sex Assigned at Male 07/03/2022 10:22 AM EDT Legal Sex Male 10:22 AM EDT Gender Identity Male 07/03/2022 10:22 AM EDT Sexual Orientation Straight 07/03/2022 10 :22 AM EDT COVID-19 Exposure Response Date Recorded In the last 10 days, have yo u been in contact with someone who was confirmed or suspected to have Coronavirus/COVID-19? No / Unsure 01/23/2023 2:28 PM EDT documented as of this encounter Plan of Treatment Not on file documented as of this encounter Visit Diagnoses Diagnosis History of candidiasis- Primary documented in this encounter Care Teams Logistical Engineer Relationship Specialty Start Date End Date Ranulfo Francisco MD [address] [place] [address] PCP - General Internal Medicine 12/05/12 documented as of this encounter
--- OUTSIDE RECORDS SUMMARY | 2025-09-02 07:14 | XMS_ITS | Encounter Summary ---
Author Organization [employer] Address [address] [place] [address] 7t [place] [address] Care Team Providers Care Heel Cutter Name Role Phone Ranulfo Francisco MD Primary Care Provider [phone] Encounter Details Date Type Department Care Team ([facility] st Contact Info) Description 08/22/2024 Orders Only [facility] MED & PEDS [address] [place], [place] [phone] Ranulfo Francisco MD [address] [place], [place] [phone] Vitamin D deficiency (Primary Dx); Vitamin B12 deficiency; Primary hypertension; Nasal congestion Social History Tobacco Use Types Packs/Day Years [...] Procedure Name Priority Date/Time Associated Diagnosis Comments VITAMIN D,25-OH,TOTAL,IA Routine 08/23/2024 9:33 AM EST Vitamin D deficiency VITAMIN B12/FOLATE, SERUM PANEL Routine 08/23/2024 9:33 AM EST Vitamin B12 deficiency documented in this encounter Results * Vitamin D, 25-Hydroxy, Total, Immunoassay (08/23/2024 9:33 AM EST) Vitamin D 25-OH Total 31.4 >30 ng/mL [facility] Comment:Health Based Referen ce Values*< 20 ng/mL [id number] ng/mL Insufficient> 30 ng/mL Sufficient*Homre DUONG. N Engl J Med. 2007;357:266-280Care must be taken in interpreting Vitamin D results fromdifferent laboratories and methodologies. Published datademonstrated that results from patients undergoinghemodialysis may show a negative bias when tested withvarious automated 25-OH vitamin D assays when compared toLC-MS/MS.When testing samples from patients whose predominant form ofVitamin D is Vitamin D2, such as patients receiving VitaminD2 supplementation, results that are subtherapeutic shouldbe confirmed with another method such as LC-MS/MS. Blood Venous blood specimen / Unknown 08/23/2024 9:33 AM EST 08/23/2024 9:33 AM EST us Ranulfo Francisco MD LAB BLOOD ORDERABLES Final Result [facility] [address] [place] [phone] * (ABNORMAL) Vitamin B12/Folate, Serum Panel (08/23/2024 9:33 AM EST) Vitamin B12 1,009(H) 200 - 900 pg/mL [facility] Comment:NORMAL 200-900 PG/ML INDETERMINATE 160-199 PG/ML DEFICIENT < 160 PG/ML Folate 7.0 > or = 4.0 ng/mL [facility] Comment:Reference Values:> o r = 4.0 ng/mL< 4.0 ng/mL suggests folate deficiency Methotrexate, aminopterin and folinic acid(leucovorin) are chemotherapeutic agents whose molecularstructures are similar to folate; therefore, the Architectfolate assay cannot be used for patients using these drugs. Blood Venous blood specimen / Unknown 08/23/2024 9:33 AM EST 08/23/2024 9:33 AM EST us Ranulfo Francisco MD LAB BLOOD ORDERABLES Final Result [facility] [address] [place] [phone] [phone] documented in this encounter Visit Diagnoses Diagnosis Vitamin D deficiency- Primary Vitamin B12 deficiency Other B-complex deficiencies Primary hypertension Unspecified essential hypertension Nasal congestion Other diseases of nasal cavity and sinuses documented in this encounter Care Teams Heel Cutter Relationship Specialty Start Date End Date Ranulfo Francisco MD [address] [place] [address] PCP - General Internal Medicine 12/05/12 documented as of this encounter
--- OUTSIDE RECORDS SUMMARY | 2025-09-02 07:14 | XMS_ITS | Encounter Summary ---
Author Organization [employer] Address [address] [place] [address] [address] [place] [address] Care Team Providers Care Interface Engineer Name Role Phone Ranulfo Francisco MD Primary Care Provider [phone] Encounter Details Date Type Department Care Team (Latest Contact Info) Description 03/31/2024 Orders Only [facility] [address] [place], [place] [phone] Ranulfo Francisco MD [address] [place], [place] [phone] Hypercholesterolemia (Primary Dx); Acquired hypothyroidism Social History Tobacco Use Types Packs/Day [...] Procedure Name Priority Date/Time Associated Diagnosis Comments TSH W/REFLEX TO FT4 Routine 08/23/2024 9 :33 AM EST Hypercholesterolemia Acquired hypothyroidism LIPID PANEL, STANDARD Routine 08/23/2024 9:33 AM EST Hypercholesterolemia COMPREHENSIVE METABOLIC PANEL Routine 08/23/2024 9:33 AM EST Hypercholesterolemia documented in this encounter Results * (ABNORMAL) Comprehensive Metabolic Panel (08/23/2024 9:33 AM EST) Sodium 142 135 - 145 mmol/L [facility] Potassium 4.1 3.3 - 5.1 mmol/L [facility] Chloride 111(H) 96 - 108 mmol/L [facility] Carbon Dioxide 24 22 - 29 mmol/L [facility] Anion Gap 11(L) 12 - 20 [facility] Urea Nitrogen (BUN) 11 9 - 16 mg/dL [facility] Creatinine, Serum 0.85 0.5 - 1.4 mg/dL [facility] Estimated Glomerular Filt Rate >60 [facility] Comment:Chronic Kidney Disea se: Estimated GFR < 60 mL/min/[id number] Kidney Disease: Estimated GFR < 15 mL/min/1.73m2 Glucose 93 60 - 115 mg/dL [facility] Calcium 8.7 8.4 - 10.2 mg/dL [facility] Bilirubin, Total 0.4 0.0 - 1.0 mg/dL [facility] Aspartate Amino Transferase 23 5 - 37 U/L [facility] Alanine Aminotransferase 33 0 - 40 U/L [facility] Total Protein 7.2 6.5 - 8.0 g/dL [facility] Albumin Level 4.2 3.5 - 5.0 g/dL [facility] Alkaline Phosphatase 51 39 - 117 U/L [facility] Blood Venous blood specimen / Unknown 08/23/2024 9:33 AM EST 08/23/2024 9:33 AM EST us Ranulfo Francisco MD LAB BLOOD ORDERABLES Final Result [facility] [address] [place], [place] [phone] * (ABNORMAL) Lipid Panel, Standard (08/23/2024 9:33 AM EST) Triglycerides 183(H) <150 mg/dL [facility] Comment:Desirable Triglyceri de: less than 150 mg/dLBorderline High Triglyceride 150-199 mg/dLHigh Triglyceride: 200-499 mg/dLVery High Triglyceride: greater than or equal to 5OO mg/dL Cholesterol 241(H) <200 mg/dL [facility] Comment:Desirable Cholestero l: less than 200 mg/dLBorderline High Cholesterol: 200-239 mg/dLHigh Cholesterol: greater than 239 mg/dL LDL Cholesterol Calculated 156(H) <100 mg/dL [facility] Comment:Desirable LDL: less than 100 mg/dLNear Optimal/Above Optimal LDL: 110- 129 mg/dLBorderline High LDL: 130-159 mg/dLHigh LDL: 160-189 mg/dLVery High LDL: greater than or equal to 190 mg/dL HDL Cholesterol 49 >40 mg/dL [facility] Comment:Desirable HDL: great er than 40 mg/dL Note: This HDL assay may give artificially low results in patients with liver disease. Blood Venous blood specimen / Unknown 08/23/2024 9:33 AM EST 08/23/2024 9:33 AM EST us Ranulfo Francisco MD LAB BLOOD ORDERABLES Final Result Performing Organization Address City/[facility] Co de Phone Number [facility] [address] [place] [phone] * TSH W/Reflex to FT4 (08/23/2024 9:33 AM EST) TSH reflex Free T4 3.42 0.32 - 4.0 uIU/mL [facility] Blood Venous blood specimen / Unknown 08/23/2024 9:33 AM EST 08/23/2024 9:33 AM EST us Ranulfo Francisco MD LAB BLOOD ORDERABLES Final Result Performing Organization Address City/[facility] Co de Phone Number [facility] [address] [place] [phone] documented in this encounter Visit Diagnoses Diagnosis Hypercholesterolemia- Primary Pure hypercholesterolemia Acquired hypothyroidism Unspecified hypothyroidism documented in this encounter Care Teams Interface Engineer Relationship Specialty Start Date End Date Ranulfo Francisco MD [address] [place] [phone] PCP - General Internal Medicine 12/05/12 documented as of this encounter
--- OUTSIDE RECORDS SUMMARY | 2025-09-02 07:14 | XMS_ITS | Encounter Summary ---
Author Organization [employer] Address [address] [place] [address] [address] [place] [address] Care Team Providers Care Cook Relief Name Role Phone Ranulfo Francisco MD Primary Care Provider [phone] Encounter Details Date Type Department Care Team (Late st Contact Info) Description 02/21/2024 Orders Only [facility] [address] [place] [address] Ranulfo Francisco MD [address] [place] [phone] Social History Tobacco Use Types Packs/Day Years [...] on filedocumented in this encounter Care Teams Cook Relief Relationship Specialty Start Date End Date Ranulfo Francisco MD [address] [place] [address] PCP - General Internal Medicine 12/05/12 documented as of this encounter
[2025-09-02 08:12] LABS: Alanine Aminotransferase 28 U/L (0-40); Albumin Level 4.4 g/dL (3.5-5.0); Alkaline Phosphatase 64 U/L (39-117); Anion Gap 13 (12-20); Aspartate Amino Transferase 21 U/L (5-37); Blood Urea Nitrogen 15 mg/dL (9-16); Calcium 8.8 mg/dL (8.4-10.2); Carbon Dioxide 24 mmol/L (22-29); Chloride 108 mmol/L (96-108); Cholesterol 235 mg/dL (<200); Estimated Glomerular Filt Rate > 60; HDL Cholesterol 45 mg/dL (>40); Potassium 3.7 mmol/L (3.3-5.1); Sodium 141 mmol/L (135-145); Total Protein 7.0 g/dL (6.5-8.0); Triglycerides 161 mg/dL (<150)
[2025-09-02 08:42] LABS: Folate 7.5 ng/mL (> or = 4.0); Vitamin B12 282 pg/mL (200-900)
[2025-09-02 10:55] LABS: Free T4 (Free Thyroxine) 1.23 ng/dL (0.71-1.85)
== END 2025-09-02 07:13 | disposition home or self-care (01) ==
LOC: HO.LAB 07:12
PROVIDERS: PCP Internal Medicine; Visit Provider Student in an Organized Health Care Education/Training Program
DX: E53.8 Deficiency of other specified B group vitamins (principal); E03.9 Hypothyroidism, unspecified; E55.9 Vitamin D deficiency, unspecified; R53.83 Other fatigue; Z13.1 Encounter for screening for diabetes mellitus
CPT/HCPCS: 36415; 80048; 80061; 80076; 82306; 82607; 82746; 83036; 84402; 84403; 84439; 84443